=== PATIENT | male | born 1960 | race Caucasian/White ===

== ENCOUNTER 2021-03-05 07:04 | Observation (INO) | payer BC ==
[2021-03-05] VITALS (11 sets, daily range): BP systolic 119–141; BP diastolic 66–88
[~2021-03-05] VITALS: Ht 193 cm; Wt 117.0 kg
[~2021-03-05 07:04] MED LIST: HYDROmorphone 2 MG/ML INJ. IVP PRN; IV RINGERS,LACTATED 1000ML 1,000 ML IV SCH; MORPHINE SULFATE 2 MG/ML INJ. IVP PRN; PROCHLORPERAZINE 10 MG/2 ML VIAL. IVP PRN; fentaNYL PF VIAL 100 MCG/2 ML VIAL IVP PRN
[2021-03-05] MEDS ORDERED: AMOX875T PO (08:28)
[2021-03-05] MEDS ORDERED: PANT40TA77 PO (08:28)
[2021-03-05] MEDS ORDERED: ATOR20TA58 PO (08:28)
[2021-03-05] MEDS ORDERED: ALPR0.254 PO (08:29)
[2021-03-05] MEDS ORDERED: ROCURONIUM 50 MG/5 ML VIAL. ONE (08:36)
[2021-03-05] MEDS ORDERED: DEXAMETHASONE SOD PHOS 4 MG/ML VIAL ONE (08:36)
[2021-03-05] MEDS ORDERED: SUCCINYLCHOLINE 200 MG/10 ML VIAL. ONE (08:36)
[2021-03-05] MEDS ORDERED: LIDOCAINE 2% PF 5 ML VIAL. ONE (08:36)
[2021-03-05] MEDS ORDERED: ONDANSETRON PF 4 MG/2 ML VIAL. ONE (08:36)
[2021-03-05] MEDS ORDERED: PROPOFOL 10 MG/ML (20ML) VIAL. IV ONE ×2 (08:36→10:21)
[2021-03-05] MEDS ORDERED: fentaNYL PF VIAL 100 MCG/2 ML VIAL ONE ×2 (08:37→10:31)
[2021-03-05] MEDS ORDERED: MIDAZOLAM HCL/PF 2 MG/2 ML VIAL. ONE (08:41)
[2021-03-05] MEDS ORDERED: BUPIVACAINE-EPI 0.5%-1:200000 MPF 30 ML VIAL. ONE (08:56)
--- NOTE | 2021-03-05 09:07 | PDOC ---
SURGICAL PROGRESS NOTE DATE: 03/05/21 TIME: 09:05 Subjective 60 yo M with perforated appendicitis. TO OR for laparoscopic versus open appendectomy. R/R/B/A d/w pt and pt's supportive . Risks, including, but not limited to: bleeding, infection, damage to surrounding structures, risk of anesthesia, risk of open. They appear to understand, their questions are answered and they elect to proceed. Office note H&P reviewed and unchanged. Vital Signs Vital Signs Date Time Temp Pulse Resp B/P (MAP) Pulse Ox O2 Delivery O2 Flow Rate FiO2 03/05/21 08:23 97.3 81 18 134/88 98 Room Air 97.3 Justicifation of Admission Dx: Justifications for Admission: Justification of Admission Dx: N/A GIUSEPPE BOB MD Mar 05, 2021 09:07
[2021-03-05] MEDS ORDERED: NEOSTIGMINE METHYLSULFATE 5 MG/5 ML SYRINGE. ONE (09:56)
[2021-03-05] MEDS ORDERED: GLYCOPYRROLATE 1 MG/5 ML VIAL. ONE (09:56)
[2021-03-05] MEDS ORDERED: KETOROLAC 30 MG/ML VIAL. ONE (09:56)
[2021-03-05] MEDS ORDERED: SEVOFLURANE 61 TO 120 MINUTES. IH ONE (10:12)
[2021-03-05] MEDS ORDERED: PHENYLEPHRINE in 0.9% NACL PF 1 MG/10 ML SYRINGE. IV ONE (10:12)
[2021-03-05] MEDS ORDERED: FAMOTIDINE 20 MG/2 ML VIAL ONE (10:12)
[2021-03-05] MEDS ORDERED: IV NORMAL SALINE 1000ML BAG 1,000 ML IV SCH (10:15)
[2021-03-05] MEDS: IV RINGERS,LACTATED 1000ML 1,000 ML IV SCH ×2 (10:15→19:49)
[2021-03-05] MEDS ORDERED: 0.9 % SODIUM CHLORIDE 10 ML DISP.SYRIN. IV PRN (10:15)
[2021-03-05] MEDS ORDERED: KETOROLAC 15 MG/ML VIAL. IV PRN (10:15)
[2021-03-05] MEDS ORDERED: ONDANSETRON PF 4 MG/2 ML VIAL. IVP PRN (10:15)
[2021-03-05] MEDS ORDERED: NALOXONE 0.4 MG/ML VIAL. IV PRN (10:15)
--- NOTE | 2021-03-05 10:17 | PDOC4 ---
OPERATIVE NOTE Date: Date: Mar 05, 2021 Pre-Op Diagnosis: Perforated appendicitis Post-Op Diagnosis: same Procedure Performed: laparoscopic appendectomy Surgeon: Junior Bob Anesthesia Type: GETA plus local Blood Loss: 50 Specimans Obtained: appendix Findings: inflamed tip of appendix, c/w previous perforation, adherent to abdominal side wall, no other pathology noted, normal liver, gallbladder and other viscera Complications: none Operative Note: After obtaining informed consent, patient was taken to OR, induced under GETA and prepped in the usual fashion. 5 mm ports placed umbilical and suprapubic, 12 port placed RUQ, all under laparoscopic guidance. Abdominal cavity was explored and noted as above. Appendix bluntly dissected off side wall. Defect created in mesoappendix. General load JANET taken across base of appendix. Vascular load taken across mesoappendix. Additional hemostasis obtained on staple line using clips. Appendix placed in bag, delivered and sent to pathology. Copious irrigation. No evidence of bleeding or other pathology noted. Ports removed without bleeding. Fascia repaired with 0 vicryl. Skin repaired with 4 0 monocryl. Dressing placed. Patient tolerated procedure well and sent to PACU in stable condition. All counts correct. Wound class is 4. GIUSEPPE BOB MD Mar 05, 2021 10:17
[2021-03-05] MEDS: fentaNYL PF VIAL 100 MCG/2 ML VIAL IVP PRN ×2 (10:33→10:47)
[2021-03-05] MEDS ORDERED: PROCHLORPERAZINE 10 MG/2 ML VIAL. ONE (10:34)
[2021-03-05] MEDS: cefOXitin SODIUM IV Push 1 GM VIAL. IVP SCH ×2 (15:35→21:10)
[2021-03-05] MEDS: HYDROcodone/APAP 5/325MG 1 TAB TABLET PO PRN ×2 (15:35→22:02)
[2021-03-05] MEDS: DOCUSATE SODIUM 100 MG CAPSULE. PO SCH (21:10)
[2021-03-06] MEDS: cefOXitin SODIUM IV Push 1 GM VIAL. IVP SCH (02:45)
[2021-03-06 03:22] VITALS: BP 130/67
[2021-03-06 05:18] LABS: CALCIUM 8.6 mg/dL (8.5-10.1); CREATININE 1.4 mg/dL (0.7-1.3); GFR 51.9; POTASSIUM 4.7 mmol/L (3.5-5.1)
[2021-03-06 05:35] LABS: BASO % 0 % (0-3); EOS % 0 % (0-3); HEMATOCRIT 43.5 % (39.0-53.0); HEMOGLOBIN 14.5 g/dL (13.0-17.5); LYMPH # 1.7 x10^3/uL (1.0-4.8); LYMPH % 14 % (24-48); MEAN CORPUSCULAR HEMOGLOBIN 32 pg (25-35); MEAN CORPUSCULAR HGB CONC 33 g/dL (31-37); MEAN CORPUSCULAR VOLUME 96 fL (79-100); MONO # 0.8 x10^3/uL (0.0-1.1); MONO % 7 % (0-9); NEUT # 9.7 x10^3/uL (1.8-7.7); NEUT % 80 % (31-73); PLATELET COUNT 184 x10^3/uL (140-400); RED BLOOD COUNT 4.51 x10^6/uL (4.30-5.70); RED CELL DISTRIBUTION WIDTH 13.7 % (11.5-14.5); WHITE BLOOD COUNT 12.2 x10^3/uL (4.0-11.0)
[2021-03-06] MEDS: IV RINGERS,LACTATED 1000ML 1,000 ML IV SCH ×2 (06:04→08:13)
[2021-03-06 07:00] VITALS: BP 143/74
[2021-03-06] MEDS: DOCUSATE SODIUM 100 MG CAPSULE. PO SCH (08:12)
--- NOTE | 2021-03-06 09:57 | PDOC3 ---
Discharge Summary Visit Information Date of Admission: Mar 05, 2021 Date of Discharge: Mar 06, 2021 Admitting Diagnosis: perforated appendicitis Brief Hospital Course Allergies Allergies Coded Allergies Type Severity Reaction Last Updated Verified No Known Drug Allergies 03/05/21 No Vital Signs Vital Signs Date Time Temp Pulse Resp B/P (MAP) Pulse Ox O2 Delivery O2 Flow Rate FiO2 03/06/21 08:00 Room Air 03/06/21 07:00 97.4 68 18 143/74 (97) 98 97.4 03/05/21 11:35 2.0 Lab Results Laboratory Tests Test 03/06/21 04:40 White Blood Count 12.2 x10^3/uL (4.0-11.0) Red Blood Count 4.51 x10^6/uL (4.30-5.70) Hemoglobin 14.5 g/dL (13.0-17.5) Hematocrit 43.5 % (39.0-53.0) Mean Corpuscular Volume 96 fL (79-100) Mean Corpuscular Hemoglobin 32 pg (25-35) Mean Corpuscular Hemoglobin Concent 33 g/dL (31-37) Red Cell Distribution Width 13.7 % (11.5-14.5) Platelet Count 184 x10^3/uL (140-400) Neutrophils (%) (Auto) 80 % (31-73) Lymphocytes (%) (Auto) 14 % (24-48) Monocytes (%) (Auto) 7 % (0-9) Eosinophils (%) (Auto) 0 % (0-3) Basophils (%) (Auto) 0 % (0-3) Neutrophils # (Auto) 9.7 x10^3/uL (1.8-7.7) Lymphocytes # (Auto) 1.7 x10^3/uL (1.0-4.8) Monocytes # (Auto) 0.8 x10^3/uL (0.0-1.1) Eosinophils # (Auto) 0.0 x10^3/uL (0.0-0.7) Basophils # (Auto) 0.0 x10^3/uL (0.0-0.2) Sodium Level 140 mmol/L (136-145) Potassium Level 4.7 mmol/L (3.5-5.1) Chloride Level 104 mmol/L (98-107) Carbon Dioxide Level 31 mmol/L (21-32) Anion Gap 5 (6-14) Blood Urea Nitrogen 12 mg/dL (8-26) Creatinine 1.4 mg/dL (0.7-1.3) Estimated GFR (Cockcroft-Gault) 51.9 Glucose Level 125 mg/dL (70-99) Calcium Level 8.6 mg/dL (8.5-10.1) Laboratory Tests Test 03/06/21 04:40 White Blood Count 12.2 x10^3/uL (4.0-11.0) Red Blood Count 4.51 x10^6/uL (4.30-5.70) Hemoglobin 14.5 g/dL (13.0-17.5) Hematocrit 43.5 % (39.0-53.0) Mean Corpuscular Volume 96 fL (79-100) Mean Corpuscular Hemoglobin 32 pg (25-35) Mean Corpuscular Hemoglobin Concent 33 g/dL (31-37) Red Cell Distribution Width 13.7 % (11.5-14.5) Platelet Count 184 x10^3/uL (140-400) Neutrophils (%) (Auto) 80 % (31-73) Lymphocytes (%) (Auto) 14 % (24-48) Monocytes (%) (Auto) 7 % (0-9) Eosinophils (%) (Auto) 0 % (0-3) Basophils (%) (Auto) 0 % (0-3) Neutrophils # (Auto) 9.7 x10^3/uL (1.8-7.7) Lymphocytes # (Auto) 1.7 x10^3/uL (1.0-4.8) Monocytes # (Auto) 0.8 x10^3/uL (0.0-1.1) Eosinophils # (Auto) 0.0 x10^3/uL (0.0-0.7) Basophils # (Auto) 0.0 x10^3/uL (0.0-0.2) Sodium Level 140 mmol/L (136-145) Potassium Level 4.7 mmol/L (3.5-5.1) Chloride Level 104 mmol/L (98-107) Carbon Dioxide Level 31 mmol/L (21-32) Anion Gap 5 (6-14) Blood Urea Nitrogen 12 mg/dL (8-26) Creatinine 1.4 mg/dL (0.7-1.3) Estimated GFR (Cockcroft-Gault) 51.9 Glucose Level 125 mg/dL (70-99) Calcium Level 8.6 mg/dL (8.5-10.1) Brief Hospital Course Mr. Shanks is a 60 old M who presented with history of perforated appendicitis. He presented for laparoscopic appendectomy and did well. POD 1 doing well, bibiana diet, pain controlled passing flatus. Discharge Information Condition at Discharge: Improved Follow Up: Weeks (2) Disposition/Orders: D/C to Home Scheduled Amoxicillin (Amoxicillin) 875 Mg Tablet, 1 TAB PO BID for antibiotic, #14 (Reported) Entered as Reported by: ATTILA ZAMORA on 03/05/21827 Last Taken: Unknown Dose on 03/05/21599 Last Action: New Order on 03/05/21827 by ATTILA ZAMORA Atorvastatin Calcium (Atorvastatin Calcium) 20 Mg Tablet, 1 TAB PO DAILY for cholesterol, #30 Ref 5 (Reported) Entered as Reported by: ATTILA ZAMORA on 03/05/21827 Last Taken: Unknown Dose on 03/05/21599 Last Action: New Order on 03/05/21827 by ATTILA ZAMORA Pantoprazole Sodium (Pantoprazole Sodium ) 40 Mg Tablet.dr, 40 MG PO DAILYAC for GERD, (Reported) Entered as Reported by: ATTILA ZAMORA on 03/05/21827 Last Taken: Unknown Dose on 03/05/21599 Last Action: New Order on 03/05/21827 by ATTILA ZAMORA Scheduled PRN Alprazolam (Alprazolam) 0.25 Mg Tablet, 1 TAB PO DAILY PRN for ANXIETY / AGITATION, #30 (Reported) Entered as Reported by: ATTILA ZAMORA on 03/05/21828 Last Taken: Unknown Dose on 02/28/21 Last Action: New Order on 03/05/21828 by ATTILA ZAMORA Justicifation of Admission Dx: Justifications for Admission: Justification of Admission Dx: N/A GIUSEPPE BOB MD Mar 06, 2021 09:57
--- NOTE | 2021-03-06 10:20 | NUR ---
Discharge Note: ELIZABETH CASH Discharge instructions and discharge home medications reviewed with Patient and spouse and a copy given. All questions have been answered and understanding verbalized. The following instructions and handouts were given: information about lap appe, medications, incisional care, follow up appointments, etc. Discontinued lines and drains: IV line in left hand removed, catheter tip intact. Patient discharged to home with self care with spouse, wheelchair used for mobility to discharge vehicle.
--- NOTE | 2021-03-06 10:33 | NUR ---
SW following. Discussed with RN, pt from home, room air, GI soft. Discharge order for home with self care. RN advised no SW needs.
== END 2021-03-06 10:30 | disposition home or self-care (01) ==
LOC: SURG 07:04 → 4 NORTH 10:09
PROVIDERS: ADMIT Surgery; ATTEND Surgery
DX: K35.32 Acute appendicitis with perforation, localized peritonitis, and gangrene, without abscess (principal); A05.9 Bacterial foodborne intoxication, unspecified
CPT/HCPCS: 36415; 44970; 80048; 85025; 96361; 96374; 96375; 96376; A4314; A4930; A6219; G0378; G0379; J0330; J0690; J0694; J0780; J1100; J1885; J2250; J2370; J2405; J2704; J2710; J3010; J3490; J7120; 88304